=== PATIENT | female | born 1985 | race Caucasian/White ===

== ENCOUNTER 2017-03-15 19:53 | Emergency (ER) | payer SELFPAY ==
[~2017-03-15] VITALS: Ht 167.6 cm; Wt 54.4 kg
== END 2017-03-15 20:31 | disposition home or self-care (01) ==
LOC: ER 19:57
DX: S61.239A Puncture wound without foreign body of unspecified finger without damage to nail, initial encounter (principal); W46.0XXA Contact with hypodermic needle, initial encounter; Y93.89 Activity, other specified; Y92.89 Other specified places as the place of occurrence of the external cause; Y99.0 Civilian activity done for income or pay
CPT/HCPCS: 36415; 86706; 86803; 99284; A4606 ×2; Z7610